=== PATIENT | male | born 1935 | race Caucasian/White ===

== ENCOUNTER 2018-12-01 16:12 | Inpatient (IN) | payer OTHER ==
[2018-12-01] MEDS ORDERED: DILTIAZEM 25 MG/5 ML VIAL IVP ONE ×2 (16:20→16:21)
[2018-12-01] MEDS ORDERED: NS 500 ML IV ONE (16:20)
--- NOTE | 2018-12-01 16:24 | EDPHY ---
H & P Time Seen by Provider: 12/01/18 16:12 HPI/ROS: CHIEF COMPLAINT: Lightheaded HISTORY OF PRESENT ILLNESS: The patient is an 83-year-old man with a history of [place] She reports that this morning after breakfast he took a nap which is unusual for him. After his nap he read a little bit and started to fall asleep again. She suggested that he get up to go to bed and when he tried to stand up he "melted to the floor". She did not lose consciousness. He did not hit his head. He denies headache or pain. He denies shortness of breath. No GI symptoms. No recent fevers or illness. states that he did have leg cramping last night that was a little bit worse than his baseline. No focal weakness or deficits. When paramedics arrived they found him to be in atrial fibrillation. With a blood pressure of 90 systolic. reports no history of atrial fibrillation or history of cardiac disease. Severity: Moderate Modifying factors: None REVIEW OF SYSTEMS: Constitutional: denies: chills, fever, recent illness, recent injury EENTM: denies: blurred vision, double vision, nose congestion Respiratory: denies: cough, shortness of breath Cardiac: See HPI Gastrointestinal/Abdominal: denies: abdominal pain, diarrhea, nausea, vomiting, blood streaked stools Genitourinary: denies: dysuria, frequency, hematuria, pain Musculoskeletal: denies: joint pain, muscle pain Skin: denies: lesions, rash, jaundice, bruising Neurological: denies: headache, numbness, paresthesia, tingling, dizziness, weakness Hematologic/Lymphatic: denies: blood clots, easy bleeding, easy bruising Immunologic/allergic: denies: HIV/AIDS, transplant 10 systems reviewed and negative except as noted EXAM: GENERAL: Well-appearing, pleasant, demented at baseline HEAD: Atraumatic, normocephalic. EYES: Pupils equal round and reactive to light, extraocular movements intact, sclera anicteric, conjunctiva are normal. ENT: TMs normal, nares patent, oropharynx clear without exudates. Moist mucous membranes. NECK: Normal range of motion, supple without lymphadenopathy or JVD. LUNGS: Breath sounds clear to auscultation bilaterally and equal. No wheezes rales or rhonchi. HEART: Irregular and tachycardic ABDOMEN: Soft, nontender, normoactive bowel sounds. No guarding, no rebound. No masses appreciated. BACK: No CVA tenderness, no spinal tenderness, step-offs or deformities EXTREMITIES: Normal range of motion, no pitting or edema. No clubbing or cyanosis. NEUROLOGICAL: Cranial nerves II through XII grossly intact. Normal speech, normal gait. 5/5 strength, normal movement in all extremities, normal sensation , normal reflexes PSYCH: Normal mood, normal affect. SKIN: Warm, dry, normal turgor, no visible rashes or lesions. Source: Patient Exam Limitations: No limitations - Medical/Surgical History Hx Asthma: No Hx Chronic Respiratory Disease: No Hx Diabetes: No Hx Cardiac Disease: Yes Hx Renal Disease: No Hx Cirrhosis: No Hx Alcoholism: No Hx HIV/AIDS: No Hx Splenectomy or Spleen Trauma: No Other PMH: Prostate cancer status post prostatectomy, hypertension, high cholesterol - Family History Significant Family History: No pertinent family hx - Social History Smoking Status: Former smoker Alcohol Use: Sober Drug Use: None Constitutional: Initial Vital Signs Temperature (C) 36.6 C 12/01/18 16:16 Heart Rate 145 H 12/01/18 16:16 Respiratory Rate 18 12/01/18 16:16 Blood Pressure 120/66 12/01/18 16:16 O2 Delivery Mode Nasal Cannula O2 (L/minute) 2 Allergies/Adverse Reactions: No Known Allergies Allergy (Unverified 12/01/18 16:30) Home Medications: Medication Instructions Recorded Aspirin EC [Aspirin EC 81 mg (*)] 81 mg PO DAILY 12/01/18 Donepezil HCl 10 mg PO HS 12/01/18 Lovastatin 20 mg PO HS 12/01/18 Memantine HCl [Namenda 10 mg] 10 mg PO BID 12/01/18 Valsartan [Diovan (*)] 80 mg PO DAILY 12/01/18 Medical Decision Making - Diagnostics EKG Interpretation: An EKG obtained and was read and documented in trace view. Please see trace view for full reading and report. Atrial fibrillation with a ventricular rate of 150. No ischemic changes A repeat EKG obtained and was read and documented in trace view. Please see trace view for full reading and report. Atrial fibrillation rate of 92. No acute ischemic changes Imaging: Discussed imaging studies w/ lead mason tender Radiologist ED Course/Re-evaluation: 4:50 p.m. the patient responded very well to diltiazem. His heart rate is now 90 still in AFib. Will give oral diltiazem. Discussed with pharmacist is recommend 30 mg. Will admit for further evaluation. Will anticoagulate. 4:55 p.m. discussed the case with Dr. Garcia who will admit. She requests diltiazem drip and Lovenox. Differential Diagnosis: Partial list of the Differential diagnosis considered include but were not limited to; atrial fibrillation, acute coronary disease, dementia and although unlikely based on the history and physical exam, I also considered infection, head injury. - Data Points Laboratory Results: Laboratory Results 12/01/18 16:18 Medications Given: Donepezil HCl (Aricept) 10 mg PO HS [facility] Stop: 05/30/19 20:59 Last Admin: 12/01/18 21:41 Dose: 10 mg Diltiazem/Dextrose (Diltiazem 125mg/125ml (Premix)) 125 mls @ 0 mls/hr IV CONT T[facility]; Per Protocol PRN Reason: Protocol Stop: 05/30/19 17:59 Last Admin: 12/02/18 08:02 Dose: 125 mls Thiamine HCl 500 mg/ Sodium (Chloride) 105 mls @ 210 mls/hr IV DAILY [facility] Stop: 12/05/18 08:59 Last Admin: 12/02/18 09:52 Dose: 105 mls Lorazepam (Ativan Injection) 0 mg IVP Q1H PRN; Protocol PRN Reason: Alcohol Withdrawal w/IV access Stop: 05/30/19 17:49 Last Admin: 12/01/18 22:35 Dose: 2 mg Memantine (Namenda) 10 mg PO BID [facility] Stop: 05/30/19 20:59 Last Admin: 12/02/18 09:40 Dose: Not Given Pantoprazole Sodium (Protonix) 40 mg IVP Q6H [facility] Stop: 05/31/19 07:59 Last Admin: 12/02/18 13:45 Dose: 40 mg Pravastatin Sodium (Pravachol) 20 mg PO HS [facility] Stop: 05/30/19 20:59 Last Admin: 12/01/18 21:41 Dose: 20 mg Valsartan (Diovan) 80 mg PO DAILY [facility] Stop: 05/31/19 08:59 Last Admin: 12/02/18 09:41 Dose: Not Given Discontinued Medications Diltiazem HCl (Cardizem 25 Mg/5 Ml Vial) 10 mg IVP EDNOW ONE Stop: 12/01/18 16:21 Last Admin: 12/01/18 16:23 Dose: 10 mg Enoxaparin Sodium (Lovenox) 80 mg SC EDNOW ONE Stop: 12/01/18 17:16 Last Admin: 12/01/18 17:09 Dose: 80 mg Sodium Chloride (Ns) 500 mls @ 0 mls/hr IV EDNOW ONE; Wide Open PRN Reason: Protocol Stop: 12/01/18 16:21 Last Admin: 12/01/18 16:29 Dose: 500 mls Diltiazem/Dextrose (Diltiazem 125mg/125ml (Premix)) 125 mls @ 0 mls/hr IV EDNOW ONE; As Directed PRN Reason: Protocol Stop: 12/01/18 16:57 Last Admin: 12/01/18 17:05 Dose: 125 mls Sodium Chloride (Ns) 1,000 mls @ 0 mls/hr IV ONCE ONE PRN Reason: Wide Open Stop: 12/02/18 00:39 Last Admin: 12/02/18 01:15 Dose: 1,000 mls Pantoprazole Sodium (Protonix) 40 mg IVP BID T[facility] Stop: 05/31/19 02:29 Last Admin: 12/02/18 02:34 Dose: 40 mg Point of Care Test Results: Chemistry 12/01/18 16:21 POC Troponin I 0.19 ng/mL H ng/mL (0.00-0.08) Departure - Departure Disposition: [facility] Clinical Impression: Atrial fibrillation Qualifiers: Atrial fibrillation type: unspecified Qualified Code(s): I48.91 - Unspecified atrial fibrillation Condition: Fair
[2018-12-01 16:34] LABS: PLATELET COUNT 255 10^3/uL (150-400)
[2018-12-01] MEDS ORDERED: DILTIAZEM 30 MG TAB PO ONE (16:51)
[2018-12-01 16:52] LABS: INR 1.07 (0.83-1.16); PROTIME(PATIENT) 13.5 SEC (12.0-15.0)
--- NOTE | 2018-12-01 16:54 | CPEKG ---
Test Reason : OPEN Blood Pressure : / mmHG Vent. Rate : 092 BPM Atrial Rate : 400 BPM P-R Int : 070 ms QRS Dur : 080 ms QT Int : 389 ms P-R-T Axes : 000 065 000 degrees QTc Int : 482 ms Atrial fibrillation Minimal ST depression, diffuse leads Confirmed by Natalie Singh ([id number]) on 12/01/2018 4:54:00 PM Referred By: NATALIE SINGH Confirmed By:Natalie Singh
[2018-12-01] MEDS ORDERED: DILTIAZEM HCL/D5W 125 ML IV ONE (16:56)
--- NOTE | 2018-12-01 16:59 | CPEKG ---
Test Reason : OPEN Blood Pressure : / mmHG Vent. Rate : 150 BPM Atrial Rate : 191 BPM P-R Int : 134 ms QRS Dur : 073 ms QT Int : 312 ms P-R-T Axes : 087 056 237 degrees QTc Int : 493 ms Atrial fibrillation with rapid V-rate Repolarization abnormality, prob rate related Confirmed by Natalie Singh ([id number]) on 12/01/2018 4:59:28 PM Referred By: NATALIE SINGH Confirmed By:Natalie Singh
[2018-12-01] MEDS ORDERED: ENOXAPARIN 80 MG/0.8 ML SYR SC ONE (17:15)
[2018-12-01] MEDS ORDERED: ONDANSETRON DISINTEGRATING 4 MG TAB PO PRN (17:43)
[2018-12-01] MEDS ORDERED: ACETAMINOPHEN 325 MG TAB PO PRN (17:43)
[2018-12-01] MEDS ORDERED: ONDANSETRON 4 MG/2 ML VIAL IVP PRN (17:43)
[2018-12-01] MEDS ORDERED: NS 1,000 ML IV SCH (17:45)
[2018-12-01] MEDS ORDERED: LORazepam 2 MG/ML INJ IVP PRN (17:50)
[2018-12-01] MEDS ORDERED: FLUMAZENIL 0.5 MG/5 ML MDV IVP PRN (17:50)
--- NOTE | 2018-12-01 18:01 | PDGENHP ---
History and Physical - Chief Complaint New onset of A-Fib w/ RVR - History of Present Illness 83 y/o male w/hx of dementia, HTN, and HLD presents via ambulance d/t new onset of a-fib, w/systolic in the 90s. His was at bedside w/him. He is very hard of hearing and only had one of his hearing aids in and he appeared pleasantly confused - , Ene[place], reports his Alzheimer's disease has worsened in the last 6 months. She tells me today after breakfast, he took a nap which is unusual for him. After the nap, he read in bed and started to fall asleep again; she told him he should get out of bed and apparently when he went to stand, he "melted." He did not LOC or hit his head. He denies: CP, palpitations, nausea, vomiting, ROONEY. He had leg cramping last night that was a little worse than his baseline. EKG reveal new onset of a-fib w/RVR. He is being admitted for further work-up, monitoring and treatment. History Information - Allergies/Home Medication List Allergies/Adverse Reactions: No Known Allergies Allergy (Unverified 12/01/18 16:30) Home Medications: Aspirin EC [Aspirin EC 81 mg (*)] 81 mg PO DAILY 12/01/18 [Last Taken 12/01/18] Donepezil HCl 10 mg PO HS 12/01/18 [Last Taken 11/30/18] Lovastatin 20 mg PO HS 12/01/18 [Last Taken 11/30/18] Memantine HCl [Namenda 10 mg] 10 mg PO BID 12/01/18 [Last Taken 12/01/18 0800] Valsartan [Diovan (*)] 80 mg PO DAILY 12/01/18 [Last Taken 12/01/18] I have personally reviewed and updated: family history, medical history, social history, surgical history - Past Medical History cancer (Prostate), hypertension, hyperlipidemia Additional medical history: Dementia - Surgical History Additional surgical history: Cataract sx, prostatectomy - Family History Positive for: hypertension, stroke - Social History Smoking Status: Former smoker Alcohol Use: Heavy (Drinks 4 alcoholic beverages/day and has done so for many years; last drink was last night) Drug Use: None Additional social history: to [place]. Lives in [place]. Review of Systems Review of Systems: ROS: 10pt was reviewed & negative except for what was stated in HPI & below Physical Exam Physical Exam: Lab data and imaging were reviewed. WBC: 12.15 H/H: 11.7/34.1 Plt count: 255 Na: 132 K: 4.6 Cl: 101 Co2: 19 BUN/Cr: 84/1.0 INR: 1.07 Troponin: 0.19 CXR: Cardiomegaly w/o decompensation EKG: Atrial fibrillation Temp Pulse Resp BP Pulse Ox 36.9 C 118 H 15 123/78 H 96 12/01/18 17:52 12/01/18 17:52 12/01/18 17:52 12/01/18 17:52 12/01/18 17:52 O2 (L/minute) 2 Constitutional: no apparent distress, appears nourished, not in pain Eyes: PERRL, anicteric sclera, EOMI Ears, Nose, Mouth, Throat: ears appear normal, no oral mucosal ulcers, dry mucous membranes, hard of hearing Cardiovascular: irregularly irregular, tachycardia Peripheral Pulses: 2+: dorsalis-pedis (R), dorsalis-pedis (L) Respiratory: no respiratory distress, no rales or rhonchi, clear to auscultation Gastrointestinal: normoactive bowel sounds, soft, non-tender abdomen, no palpable masses Genitourinary: no bladder fullness, no bladder tenderness Skin: warm, normal color, no rashes or abrasions, no fluctuance, no induration, No mottled Musculoskeletal: full muscle strength, no muscle tenderness, normal joint ROM, no joint effusions Neurologic: sensation intact bilaterally, CN II-XII Intact Psychiatric: interacting appropriately, not anxious, not encephalopathic, thought process linear, poor memory Lymph, Heme, Immunologic: no cervical LAD, no supraclavicular LAD Lab Data & Imaging Review 12/01/18 Unknown 12/01/18 16:18 WBC 12.15 10^3/uL (3.80-9.50) H 12/01/18 Unknown RBC 3.48 10^6/uL (4.40-6.38) L 12/01/18 Unknown Hgb 11.7 g/dL (13.7-17.5) L 12/01/18 Unknown Hct 34.1 % (40.0-51.0) L 12/01/18 Unknown MCV 98.0 fL (81.5-99.8) 12/01/18 Unknown MCH 33.6 pg (27.9-34.1) 12/01/18 Unknown MCHC 34.3 g/dL (32.4-36.7) 12/01/18 Unknown RDW 12.7 % (11.5-15.2) 12/01/18 Unknown Plt Count 255 10^3/uL (150-400) 12/01/18 Unknown MPV 11.7 fL (8.7-11.7) 12/01/18 Unknown Neut % (Auto) 88.0 % (39.3-74.2) H 12/01/18 Unknown Lymph % (Auto) 4.4 % (15.0-45.0) L 12/01/18 Unknown [place] % (Auto) 6.7 % (4.5-13.0) 12/01/18 Unknown Eos % (Auto) 0.0 % (0.6-7.6) L 12/01/18 Unknown Baso % (Auto) 0.2 % (0.3-1.7) L 12/01/18 Unknown Nucleat RBC Rel Count 0.0 % (0.0-0.2) 12/01/18 Unknown Absolute Neuts (auto) 10.69 10^3/uL (1.70-6.50) H 12/01/18 Unknown Absolute Lymphs (auto) 0.53 10^3/uL (1.00-3.00) L 12/01/18 Unknown Absolute Monos (auto) 0.81 10^3/uL (0.30-0.80) H 12/01/18 Unknown Absolute Eos (auto) 0.00 10^3/uL (0.03-0.40) L 12/01/18 Unknown Absolute Basos (auto) 0.02 10^3/uL (0.02-0.10) 12/01/18 Unknown Absolute Nucleated RBC 0.00 10^3/uL (0-0.01) 12/01/18 Unknown Immature Gran % 0.7 % (0.0-1.1) 12/01/18 Unknown Immature Gran # 0.09 10^3/uL (0.00-0.10) 12/01/18 Unknown RBC/WBC/PLT Morphology TNP 12/01/18 Unknown Platelet Estimate TNP 12/01/18 Unknown PT 13.5 SEC (12.0-15.0) 12/01/18 Unknown INR 1.07 (0.83-1.16) 12/01/18 Unknown APTT 21.1 SEC (23.0-38.0) L 12/01/18 Unknown Sodium 132 mEq/L (135-145) L 12/01/18 16:18 Potassium 4.6 mEq/L (3.5-5.2) 12/01/18 16:18 Chloride 101 mEq/L (97-110) 12/01/18 16:18 Carbon Dioxide 19 mEq/l (22-31) L 12/01/18 16:18 Anion Gap 12 mEq/L (6-14) 12/01/18 16:18 BUN 84 mg/dL (7-23) H 12/01/18 16:18 Creatinine 1.0 mg/dL (0.7-1.3) 12/01/18 16:18 Estimated GFR > 60 12/01/18 16:18 Glucose 109 mg/dL (70-100) H 12/01/18 16:18 Calcium 9.2 mg/dL (8.5-10.4) 12/01/18 16:18 Total Bilirubin 0.8 mg/dL (0.1-1.4) 12/01/18 16:18 Conjugated Bilirubin 0.2 mg/dL (0.0-0.5) 12/01/18 16:18 Unconjugated Bilirubin 0.6 mg/dL (0.0-1.1) 12/01/18 16:18 AST 33 IU/L (17-59) 12/01/18 16:18 ALT 43 IU/L (21-72) 12/01/18 16:18 Alkaline Phosphatase 46 IU/L (38-126) 12/01/18 16:18 POC Troponin I 0.19 ng/mL (0.00-0.08) H 12/01/18 16:21 Total Protein 6.4 g/dL (6.3-8.2) 12/01/18 16:18 Albumin 4.2 g/dL (3.5-5.0) 12/01/18 16:18 Assessment & Plan Plan: 83 y/o male w/hx of HTN, HLD, and dementia presenting w/new onset of a-fib w/ RVR. He was found by paramedics to have systolic in the 90s and in a-fib.His vitals signs upon admission to the ED were the following: BP 120/66, HR 145, Resp 18, Temp 36.6. Current set of vitals are the following: BP 123/78, HR 118, Resp 15, 36.9, 96% 2L NC. #New onset of atrial fibrillation w/RVR: Stable -Etiology unknown but risk factors include HTN, cardiomyopathies, advanced age -Cards consulted and I spoke to Dr. Perez who will evaluate the pt in AM -Cont tele/PCU monitoring -Received Dilt IVP + drip and Lovenox subq 80mg in ED; cont dilt drip overnight and Lovenox subq 80mg BID in AM -Initial troponin mildly elevated (0.19), cycle trop x 2 Q6H -Echo in AM -CXR reveals cardiomegaly w/o decompensation -Checking TSH #Alcohol cessation -Reportedly drinks 4 alcoholic beverages per night and has been doing so for many, many years -Initiated CIWA protocol including seizure precautions, Thiamine bolus + PO daily -Query whether consistent etoh intake is a component to his a-fib/cardiomegaly #Alzheimer's Disease -Cont home aricept and namenda -PT/OT to evaluate and treat #HTN/HLD -Stable in house. Cont home statin and ARB. -Lipid panel performed in 2018 w/cholesterol (134), LDL (53), and non-LDL ( 72) low. -He has been utilizing his statin for years now, unclear what worsened his leg cramping last night #Hyponatremia: (132). Dry mucous membrane, tenting. Received 500 mL in ED; cont IVF x 2 bags overnight. Checking CBC/BMP in AM. Diet: Cardiac VTE ppx: Lovenox subq BID Code: Full Dispo: Admit to obs
[2018-12-01] MEDS: DONEPEZIL HCL 5 MG TAB PO SCH (21:41)
[2018-12-01] MEDS: MEMANTINE HCL 5 MG TAB PO SCH (21:41)
[2018-12-01] MEDS: PRAVASTATIN SODIUM 20 MG TAB PO SCH (21:41)
[2018-12-02] MEDS ORDERED: NS 1,000 ML IV ONE (00:38)
--- NOTE | 2018-12-02 02:25 | HOSPPROG ---
Hospitalist Progress Note Assessment/Plan: XC: Notified by RN of acute melanotic stool and coffee ground emesis. Patient briefly exhibited increased tachycardia but improved once back in bed. The patient feels well and denies abdominal pain. His BP is low/normal, as it has been. Per review of chart this is a new complaint. Will obtain adequate b/l IV access, CBC, and type and cross. NS bolus started and will also order IV PPI. Will likely need EGD in the morning. Objective: Vital Signs Temp Pulse Resp BP Pulse Ox 36.7 C 82 16 88/76 L 95 12/02/18 00:00 12/02/18 00:00 12/02/18 00:00 12/02/18 00:00 12/02/18 00:00 11/30/18 12/01/18 12/02/18 05:59 05:59 05:59 Intake Total 650 Balance 650 PT 13.5 SEC (12.0-15.0) 12/01/18 Unknown INR 1.07 (0.83-1.16) 12/01/18 Unknown ICD10 Worksheet Patient Problems: Problems Problem Status Onset Atrial fibrillation Acute
[2018-12-02] MEDS ORDERED: PANTOPRAZOLE SODIUM 40 MG VIAL IVP SCH (02:30)
[2018-12-02 02:43] LABS: INR 1.39 (0.83-1.16); PROTIME(PATIENT) 16.5 SEC (12.0-15.0)
[2018-12-02] MEDS ORDERED: ENOXAPARIN 80 MG/0.8 ML SYR SC SCH (06:00)
[2018-12-02] MEDS: DILTIAZEM HCL/D5W 125 ML IV SCH ×2 (08:02→20:55)
--- NOTE | 2018-12-02 08:21 | HOSPPROG ---
Hospitalist Progress Note Assessment/Plan: #AGIB: hematemesis/melena this morning. Received 1 dose Lovenox in ER -transfuse additional blood now, hold ASA -DDx: ulcer (occasional Advil), varices (4-5 drinks daily) -Dr. Cintron to scope when more stable #New onset a fib: due to acute bleed. -EF stable 60%, no WMA -Dilt gtt #Hypotension: acute GIB, tachycardia -BP improving with transfusion, dilt. If BP doesn't tolerate, can do amio #Metabolic encephalopathy: due to acute bleed #Etoh dependence: monitor for w/d -check lytes #Alzheimer's: knows self, home and at baseline #HTN: hold Lisinopril #HLD: hold statin #NPO ICU admission, critically ill with acute GIB Critical care time spent 60 min: bedside evaluating pt, reviewing records, d/w Dr. Vaz Subjective: large mel[place] stool Objective: Vital Signs Temp Pulse Resp BP Pulse Ox 36.6 C 167 H 23 H 81/63 L 96 12/02/18 06:10 12/02/18 08:02 12/02/18 07:00 12/02/18 07:00 12/02/18 06:10 Laboratory Results 12/02/18 02:45 12/02/18 02:10 12/01/18 12/02/18 12/03/18 05:59 05:59 05:59 Intake Total 650 Output Total 700 Balance -50 PT 16.5 SEC (12.0-15.0) H 12/02/18 02:05 INR 1.39 (0.83-1.16) H 12/02/18 02:05 - Time Spent With Patient Time Spent with Patient: greater than 35 minutes Time Spent with Patient: Greater than 35 minutes spent on this patients care, greater than 50% of time spent counseling, educating, and coordinating care regarding the above mentioned plan. - Physical Exam Constitutional: other (pale) Eyes: pale conjunctiva Ears, Nose, Mouth, Throat: dry mucous membranes, other (dried blood around lips) Cardiovascular: irregularly irregular, tachycardia Respiratory: no respiratory distress Gastrointestinal: normoactive bowel sounds, guarding, rebound, No distension Genitourinary: No collado in urethra Skin: other (cool, pale) Psychiatric: encephalopathic ICD10 Worksheet Patient Problems: Problems Problem Status Onset Atrial fibrillation Acute
[2018-12-02] MEDS ORDERED: ALTEPLASE 2 MG VIAL IVP PRN (08:35)
[2018-12-02] MEDS ORDERED: ASPIRIN EC 81 MG TAB PO SCH (09:00)
[2018-12-02] MEDS ORDERED: VALSARTAN 80 MG TAB PO SCH (09:00)
--- NOTE | 2018-12-02 09:23 | PDCARCONS ---
Cardiology Consult Reason for Consult: Atrial fibrillation with RVR (new diagnosis) Chief Complaint: Feeling faint with shortness of breath Requesting Physician: Hospitalist Team History of Present Illness: Patient is an 83 y/o male with history of dementia (Alzeheimer's), HTN, and HLP , who presented to [facility] ER after feeling faint at home. Symptoms were initially noted yesterday morning, to the degree that the patient's suggested (with the weakness), that the patient go back to bed. In attempting to stand, the patient slowly fell to the floor, and EMS was called. EMS noted atrial fibrillation on monitor, and rather significant hypotension (systolic pressures of 90 mm Hg). Patient was brought to [facility], and IV CCB was started, and the patient was placed on the floor after diltiazem drip was started and lovenox rendered. Mild elevation to troponin was noted (0.19). On the floor, the patient had hematemasis and melena, and was urgently transferred to the ICU. When the patient was seen this morning, Diltiazem drip was on hold, but ordered. Two units of PRBC had been transfused, and two more were ordered. After the Diltiazem drip was started, heart rates dropped. Blood pressure was hypotensive (90 mm Hg systolic). In speaking with the patients (at bedside), no cardiovascular complaints of chest pains or pressure. No PND or orthopnea. No cardiovascular history ( outside of the HTN and HLP). No diagnosis of CAD, no prior history of atrial fibrillation. Patient is a moderate drinker with 6-8 drinks per day, every day. Remainder of the 12 point review of systems was unremarkable History Information - Allergies/Home Medication List Allergies/Adverse Reactions: No Known Allergies Allergy (Unverified 12/01/18 16:30) Home Medications: Aspirin EC [Aspirin EC 81 mg (*)] 81 mg PO DAILY 12/01/18 [Last Taken 12/01/18] Donepezil HCl 10 mg PO HS 12/01/18 [Last Taken 11/30/18] Lovastatin 20 mg PO HS 12/01/18 [Last Taken 11/30/18] Memantine HCl [Namenda 10 mg] 10 mg PO BID 12/01/18 [Last Taken 12/01/18 0800] Valsartan [Diovan (*)] 80 mg PO DAILY 12/01/18 [Last Taken 12/01/18] I have personally reviewed and updated: family history, medical history, social history, surgical history Past Medical History: - Past Medical History atrial fibrillation, hypertension, hyperlipidemia - Surgical History Reports: no pertinent surgical hx - Family History Positive for: non-pertinent - Social History Smoking Status: Former smoker Alcohol Use: Heavy (Drinks 4 alcoholic beverages/day and has done so for many years; last drink was last night) Drug Use: None Cardiac History - Cardiac History Cardiac Risk Factors: hypertension (>140/90), lipidemia, age > 65, male Timing/Duration: Hours Severity: severe Severity Scale: 10 Location: epigastric Activities at Onset: none Modifying Factors: improves with: lying down, oxygen Associated Symptoms: loss of appetite, malaise, nausea/vomiting, shortness of breath, weakness MANDEEP Risk Evaluation age greater or equal to 65: yes greater or equal to 3 CAD risk factors: yes known CAD(stenosis greater or eqaul to 50%): no ASA use in past 7 days: no severe angina(greater or equal to 2 episodes in 24hrs): no EKG ST changes greater or equal to 0.5mm: no positive cardiac marker: yes Total Score: 3 MANDEEP Score: 13.2% risk Age in Years: 75 or older Sex: Male Congestive Heart Failure History: No Hypertension History: Yes Stroke/TIA/Thromboembolism History: No Vascular Disease History: No Diabetes Mellitus: No [id number] Score: 3 Physical Exam Physical Exam: Temp Pulse Resp BP Pulse Ox 36.6 C 167 H 23 H 81/63 L 96 12/02/18 06:10 12/02/18 08:02 12/02/18 07:00 12/02/18 07:00 12/02/18 06:10 O2 (L/minute) 2 Constitutional: chronically ill appearing, uncomfortable Eyes: PERRL, EOMI Ears, Nose, Mouth, Throat: hearing normal, ears appear normal, dry mucous membranes Cardiovascular: irregularly irregular, pulses symmetric bilaterally, tachycardia , No JVD Peripheral Pulses: 2+: dorsalis-pedis (R), dorsalis-pedis (L) Respiratory: no respiratory distress, no rales or rhonchi, clear to auscultation Gastrointestinal: tenderness Skin: warm, other (palor) Musculoskeletal: no muscle tenderness Neurologic: sensation intact bilaterally, weakness, CN II-XII Intact Psychiatric: encephalopathic Lab and Imaging 12/02/18 02:45 12/02/18 02:05 WBC 16.54 10^3/uL (3.80-9.50) H 12/02/18 02:05 RBC 2.08 10^6/uL (4.40-6.38) L 12/02/18 02:05 Hgb 6.2 g/dL (13.7-17.5) L 12/02/18 02:45 Hct 18.8 % (40.0-51.0) L 12/02/18 02:45 MCV 102.9 fL (81.5-99.8) H 12/02/18 02:05 MCH 34.1 pg (27.9-34.1) 12/02/18 02:05 MCHC 33.2 g/dL (32.4-36.7) 12/02/18 02:05 RDW 12.7 % (11.5-15.2) 12/02/18 02:05 Plt Count 187 10^3/uL (150-400) 12/02/18 02:05 MPV 11.7 fL (8.7-11.7) 12/01/18 Unknown Neut % (Auto) 88.0 % (39.3-74.2) H 12/01/18 Unknown Lymph % (Auto) 4.4 % (15.0-45.0) L 12/01/18 Unknown Jerauld % (Auto) 6.7 % (4.5-13.0) 12/01/18 Unknown Eos % (Auto) 0.0 % (0.6-7.6) L 12/01/18 Unknown Baso % (Auto) 0.2 % (0.3-1.7) L 12/01/18 Unknown Nucleat RBC Rel Count 0.0 % (0.0-0.2) 12/01/18 Unknown Absolute Neuts (auto) 10.69 10^3/uL (1.70-6.50) H 12/01/18 Unknown Absolute Lymphs (auto) 0.53 10^3/uL (1.00-3.00) L 12/01/18 Unknown Absolute Monos (auto) 0.81 10^3/uL (0.30-0.80) H 12/01/18 Unknown Absolute Eos (auto) 0.00 10^3/uL (0.03-0.40) L 12/01/18 Unknown Absolute Basos (auto) 0.02 10^3/uL (0.02-0.10) 12/01/18 Unknown Absolute Nucleated RBC 0.00 10^3/uL (0-0.01) 12/01/18 Unknown Immature Gran % 0.7 % (0.0-1.1) 12/01/18 Unknown Immature Gran # 0.09 10^3/uL (0.00-0.10) 12/01/18 Unknown RBC/WBC/PLT Morphology TNP 12/01/18 Unknown Platelet Estimate TNP 12/01/18 Unknown PT 16.5 SEC (12.0-15.0) H 12/02/18 02:05 INR 1.39 (0.83-1.16) H 12/02/18 02:05 APTT 21.1 SEC (23.0-38.0) L 12/01/18 Unknown Turbidity Cancelled 12/02/18 02:10 Sodium 134 mEq/L (135-145) L 12/02/18 02:05 Potassium 3.6 mEq/L (3.5-5.2) 12/02/18 02:05 Chloride 112 mEq/L (97-110) H 12/02/18 02:05 Carbon Dioxide 13 mEq/l (22-31) L 12/02/18 02:05 Anion Gap 9 mEq/L (6-14) 12/02/18 02:05 BUN 77 mg/dL (7-23) H 12/02/18 02:05 Creatinine 0.8 mg/dL (0.7-1.3) 12/02/18 02:05 Estimated GFR > 60 12/02/18 02:05 Glucose 131 mg/dL (70-100) H 12/02/18 02:05 Calcium 7.1 mg/dL (8.5-10.4) L 12/02/18 02:05 Total Bilirubin 0.8 mg/dL (0.1-1.4) 12/01/18 16:18 Conjugated Bilirubin 0.2 mg/dL (0.0-0.5) 05/08/19 16:18 Unconjugated Bilirubin 0.6 mg/dL (0.0-1.1) 12/01/18 16:18 AST 33 IU/L (17-59) 12/01/18 16:18 ALT 43 IU/L (21-72) 12/01/18 16:18 Alkaline Phosphatase 46 IU/L (38-126) 12/01/18 16:18 POC Troponin I 0.19 ng/mL (0.00-0.08) H 12/01/18 16:21 Troponin I 0.189 ng/mL (0.000-0.034) H 12/02/18 02:10 Total Protein 6.4 g/dL (6.3-8.2) 12/01/18 16:18 Albumin 4.2 g/dL (3.5-5.0) 12/01/18 16:18 TSH 1.640 uIU/mL (0.465-4.680) 12/01/18 16:15 Specimen Hemolysis Cancelled 12/02/18 02:10 Patient ABO/Rh AB NEGATIVE 12/02/18 02:05 Antibody Screen NEGATIVE 12/02/18 02:05 Crossmatch IS Only See Detail 12/02/18 02:05 Visualized and Interpreted Chest x-ray results: Yes Chest X-ray Interpretation: no infiltrate, other (cardiomegaly) Visualized and Interpreted EKG results: Yes EKG additional interpertation: atrial fibrillation with RVR and non specific ST/ T wave changes Telemetry: atrial fibrillation with initial rates of 130-150 bpm; on CCB IV with heart rates of 110 bpm Echocardiogram: Bedside assessment with grossly normal LVEF (tachycardia), and no gross valve pathology was noted. Formal read pending A/P Assessment: Patient is an 83 y/o male with history of Dementia, HTN, and HLP, and new diagnosis of atrial fibrillation with admission to hospital. While in house, acute GI bleed noted with profound drop in H/H noted. Two units of PRBC given with two more in the process of being transfused. No cardiovascular complaints , but patient unable to give much verbal response. gave me all the history , and review of ER and Hospitalist notes for further history. GI has been consulted, and with reduction in heart rate noted, will follow blood pressure response to PRBC transfusions and IV CCB therapy. Mild troponin elevation is likely secondary to the stressors the patient has been subjected to. Cardiology would pursue stabilization of the patient enough to facilitate endoscopy. Plan: (1) Transfusion to H/H >8/30 (2) Would maintain therapy on Diltiazem for assistance with some degree of heart rate slowing (3) Would hold antihypertensive therapies (4) Patient should have endoscopy sooner rather than later (5) Likely stress testing after stabilization/endoscopy to determine if there is CAD noted, but would not pursue this prior given the severity of the current GI bleeding (6) Cardiology will follow this patient while in house.
[2018-12-02] MEDS: PANTOPRAZOLE SODIUM 40 MG VIAL IVP SCH ×3 (09:40→20:55)
[2018-12-02] MEDS: MEMANTINE HCL 5 MG TAB PO SCH ×2 (09:40→22:06)
[2018-12-02] MEDS: THIAMINE HCL 500 MG in NS 100 ML IV SCH (09:52)
[2018-12-02] MEDS ORDERED: EPINEPHrine 1 MG/ML INJ ONE (11:58)
--- NOTE | 2018-12-02 12:14 | PDANEPAE ---
ANE History of Present Illness upper endo ANE Past Medical History - Cardiovascular History Hx Hypertension: Yes Hx Arrhythmias: Yes Hx Chest Pain: No Hx Coronary Artery / Peripheral Vascular Disease: No Hx CHF / Valvular Disease: No Hx Palpitations: No - Pulmonary History Hx COPD: No Hx Asthma/Reactive Airway Disease: No Hx Recent Upper Respiratory Infection: No Hx Oxygen in Use at Home: Yes O2 in Use at Home (L/minute): at times Hx Sleep Apnea: No - Neurologic History Hx Cerebrovascular Accident: No Hx Seizures: No Hx Dementia: Yes - Endocrine History Hx Diabetes: No Hypothyroid: No Hyperthyroid: No Obesity: no - Renal History Hx Renal Disorders: No Renal History Comment: one kidney - Liver History Hx Hepatic Disorders: No - Chronic Pain History Chronic Pain: No ANE Review of Systems Review of Systems: - Exercise capacity Exercise capacity: <4 METS, limited by disability ANE Patient History - Allergies Allergies/Adverse Reactions: No Known Allergies Allergy (Unverified 12/01/18 16:30) - Home Medications Home medications: home medication list seen and reviewed Home Medications: Aspirin EC [Aspirin EC 81 mg (*)] 81 mg PO DAILY 12/01/18 [Last Taken 12/01/18] Donepezil HCl 10 mg PO HS 12/01/18 [Last Taken 11/30/18] Lovastatin 20 mg PO HS 12/01/18 [Last Taken 11/30/18] Memantine HCl [Namenda 10 mg] 10 mg PO BID 12/01/18 [Last Taken 12/01/18 0800] Valsartan [Diovan (*)] 80 mg PO DAILY 12/01/18 [Last Taken 12/01/18] - NPO status NPO Status: no food or drink >8 hours - Anes Hx Anes Hx: no prior problems - Smoking Hx Smoking Status: Former smoker - Alcohol Use Alcohol Use: Heavy (Drinks 4 alcoholic beverages/day and has done so for many years; last drink was last night) ANE Labs/Vital Signs - Labs Result Diagrams: 12/02/18 02:45 12/02/18 02:05 - Vital Signs Blood Pressure: 90/66 Heart Rate: 114 Respiratory Rate: 19 O2 Sat (%): 94 Height: 182.88 cm Weight: 79.379 kg ANE Physical Exam - Airway Mallampati Score: Class 2 Mouth exam: normal dental/mouth exam - Pulmonary Pulmonary: no respiratory distress - Cardiovascular Cardiovascular: regular rate and rhythym - ASA Status ASA Status: III ANE Anesthesia Plan Anesthesia Plan: MAC
[2018-12-02] MEDS ORDERED: LIDOCAINE 2% 2 ML INJ ONE ×3 (12:18)
[2018-12-02] MEDS ORDERED: PROPOFOL 200 MG/20 ML VIAL ONE ×2 (12:18→12:36)
[2018-12-02] MEDS ORDERED: PHENYLEPHRINE HCL 100 MCG/ML SYR ONE ×2 (12:40)
--- NOTE | 2018-12-02 12:44 | GCON ---
[f rep st] CONSULTATION DATE OF CONSULTATION: 12/02/2018 CONSULTING PHYSICIAN: Marin Brooks MD REASON FOR CONSULTATION: Hematemesis. CHIEF COMPLAINT: Hematemesis. HISTORY OF PRESENT ILLNESS: The patient is an 83-year-old male with multiple medical problems including dementia, hypertension, hyperlipidemia, who presented to hospital on 12/01/2018 with new onset of atrial fibrillation with a low blood pressure. He is a poor historian and thus much of information is obtained through the chart and his who is present. Casper had complaints of being faint and light headed. he presented to the ER in rapid afib with a low systolic blood pressure. During his stay in his admission, the patient had 2 episodes of hematemesis as well as rapid AFib. He was placed on a diltiazem drip and given 4 units of packed RBCs. The patient denies any exacerbating or alleviating factor symptoms. He also had multiple episodes of melena and was urgently transferred to the ICU. I am being asked by Dr. Brooks to evaluate the patient in consultation regarding his hematemesis. PAST MEDICAL HISTORY: New onset atrial fibrillation, hypertension, hyperlipidemia, Alzheimer disease. PAST SURGICAL HISTORY: Prostatectomy, cataracts. FAMILY HISTORY: Hypertension, stroke. SOCIAL HISTORY: Former smoker. Positive alcohol. ALLERGIES: NKDA. MEDICATIONS: Aspirin 81 mg a day, donepezil, lovastatin, memantine, valsartan. REVIEW OF SYSTEMS: A 14-point review of systems was asked. Pertinent positives and negatives per HPI. PHYSICAL EXAM: VITAL SIGNS: Blood pressure 90/66, heart rate 114, respiration rate 19, temperature 36.6. GENERAL: In no apparent distress. Nourished. Awake and alert. HEENT: Anicteric. Moist mucosa. CARDIOVASCULAR: Irregular rhythm. Tachycardic. LUNGS: Clear to auscultation bilaterally. No rales, wheezes, rhonchi. ABDOMEN: Soft, nontender, nondistended. Positive bowel sounds. No guarding. No rebound. EXTREMITIES: No clubbing, cyanosis, or edema. SKIN: Non icteric. NEUROLOGIC: 2 through 12 grossly intact. PSYCH: Normal affect. MUSCULOSKELETAL: No obvious joint effusions. LYMPH NODES: No lymphadenopathy. BLOOD WORK: WBC 16.5, hemoglobin 6.2, hematocrit 18.8. INR 1.39. Creatinine 1.0, BUN 77, sodium 134, potassium 3.6. ASSESSMENT AND PLAN: 1. Hematemesis- on aspirin products. At this time, I suspect an aggressive upper gastrointestinal bleed. Has already recieved 4 units PRBC. Would recommend to monitor hemoglobin and hematocrit and transfuse as needed. We would also recommend a Protonix infusion. Would hold all anticoagulation for the time being. At this time, I recommend to proceed with emergent upper endoscopy to delineate the cause of his bleed as well as for therapy. The risks , benefits, and alternatives of the procedure were discussed in great detail with the patient and . The risks of infection, bleeding, perforation, and sedation were discussed. Due to his new onset rapid atrial fibrillation, as well as aggressive bleed as well as in the intensive care unit, he is a high risk for sedation complications and would recommend anesthesiology support. 2. Atrial fibrillation. 3. Hypertension. 4. Hyperlipidemia. Thank you very much for this consultation. /[id number]/MODL MTDD
[2018-12-02] MEDS ORDERED: NALOXONE HCL 0.4 MG/ML INJ IVP PRN (12:55)
--- NOTE | 2018-12-02 12:56 | POSTANESTH ---
Post Anesthetic Evaluation Cardiovascular Status: Similar to Pre-Op Cond Respiratory Status: Similar to Pre-op Cond. Level of Consciousness/Mental Status: Moderately Sleepy Pain Control: Adequate, Prn Tx Ordered Nausea/Vomiting Control: Adequate, Prn Tx Ordered Complications Possibly Related to Anesthesia: None Noted
[2018-12-02] MEDS ORDERED: ALBUMIN 5% 500 ML BOTTLE IV ONE (13:02)
--- NOTE | 2018-12-02 13:08 | ECHO ---
[email or web address] [address] Main: [phone] Echocardiography Examination Transthoracic Name: ZULY HOFFMANN MR#: [id number] Study Date: 12/02/2018 Study Time: 07:52 AM Date of : 1935 Age: 83 year(s) Height: 182.9 cm (72 in.) Weight: 79.38 kg (175 lb.) BSA: 2.01 m2 Gender: Male Examination: Echo Contrast: Image Quality: Rhythm: Atrial fibrillation Heart Rate: 154 bpm BP: 70 mmHg/42 mmHg Indication: New onset of Atrial Fibrillation, New GI Bleed, Hypotension Procedure Staff Referring Physician: Metal Finish Inspector: Yinka Randall RDCS Reading Physician: Xavier Berger MD Requesting Provider: Ordering Physician: Kimmy Madrid Indication: New onset of Atrial Fibrillation, New GI Bleed, Hypotension Measurements Chambers AV/MV Label Value Normal Value Label Value Normal Value LVOT Vmax 0.97 m/s (0.7m/s - 1.1m/s) AV PGmax 12 mmHg LVOTd 2.1 cm (1.9cm - 2.1cm) AV PGmean 7 mmHg LVOT VTI 15.9 cm (18cm - 22cm) AV Vmax 1.72 m/s LVDd, 2D 4.3 cm (4.2cm - 5.9cm) BURTON (Vmax) 2 cm2 LVDs, 2D 3.2 cm (2.1cm - 4cm) BURTON (VTI) 2.2 cm2 IVSd, 2D 0.8 cm (0.6cm - 1.1cm) MV E Vmax 0.8 m/s LVPWd, 2D 1 cm (0.6cm - 1cm) MV E/E' lateral 13 LVEF, 2D 52 % (54% - 74%) MV E/E' septal 13.2 (0.45 - 1.25) LVOT PGmean 2 mmHg MV E' septal 0.06 m/s LVOT Vmean 0.6 m/s MV E' lateral 0.06 m/s RVDd, 2D 2.5 cm (1.9cm - 3.8cm) MV E/E' mean 13.33 LA Volume, BP 76 ml (18ml - 58ml) MV E' mean 0.06 m/s LADs, 2D 3.4 cm (3cm - 4cm) TV/PV LAESV index, BP 37.8 ml/m2 Label Value Normal Value RA Area 18.7 cm2 RA Pressure 5 mmHg Additional Vessels RVSP 37 mmHg Label Value Normal Value TR Pmax 32 mmHg AoRoot, MM 3.6 cm (2.2cm - 3.7cm) TR Vmax 2.84 m/s PV PGmax 4 mmHg Patient: ZULY HOFFMANN Study Date: 12/02/2018 Page 1 of 2 07:52 AM PV Vmax, Caliper 1.02 m/s (0.6m/s - 0.9m/s) Conclusions (1) Left ventricular systolic ejection fraction was grossly normal (50-60%) - normal wall motion (patient was tachycardic in atrial fibrillation over course of this study) - no LVH (2) Normal RV size and function (3) Mild LA dilation was noted (4) Mild MR with mild mitral valve calcification (5) Trileaflet aortic valve with mild AI and moderate sclerosis, but no stenosis (6) Mild TR - RVSP was estimated to be 37 mm Hg (7) Aortic root was measured to 3.6 cm (8) No pericardial effusion Findings Left Ventricle: Left ventricle is normal in size. Low normal left ventricular systolic function. The EF is visually estimated to be 55 %. EF range is estimated at 50 % - 60 %. Left ventricle wall thickness is normal. There are no regional wall motion abnormalities. Unable to assess Diastolic Dysfunction due to atrial fibrillation/a flutter. Right Ventricle: Normal size right ventricle. Right ventricular systolic function is normal. Left Atrium: The left atrium is mildly dilated. Mitral Valve: Mild mitral regurgitation. No mitral valve stenosis. There is mild mitral calcification. Aortic Valve: Mild aortic regurgitation is present. There is no aortic stenosis. Aortic leaflets exhibit moderate calcification. The aortic valve is trileaflet. Tricuspid Valve: Tricuspid valve leaflets are normal in appearance and function. Mild tricuspid regurgitation. Right Ventricular systolic pressure is measured at 37 mmHg. Pulmonary artery pressure is upper limits of normal. Pulmonic Valve: Pulmonic leaflets are structurally normal. Trivial pulmonic valve regurgitation is present. Aorta: The aorta is normal. The aortic root size in M-mode measures 3.6 cm. Aorta Measurements AoRoot, MM is 3.6 cm. Pericardium: No pericardial effusion. Exam Details Procedure Ordered: Echo (No Signature Object) Patient: ZULY HOFFMANN Study Date: 12/02/2018 Page 2 of 2 07:52 AM [id number]
[2018-12-02 13:17] LABS: PLATELET COUNT 140 10^3/uL (150-400)
--- NOTE | 2018-12-02 13:28 | GIREPORT ---
[facility] Surgical Services - Endoscopy Department Patient Name: Casper Lazaro Procedure Date: 12/02/2018 11:56 AM Patient Type: Inpatient Attending MD/ ER Physician: Rohan Cintron MD Procedure: Upper GI endoscopy Indications: Hematemesis Patient Profile: 83 year old male presents for evaluation of hematemesis. Providers: Rohan Cintron MD Medicines: Monitored Anesthesia Care Complications: No immediate complications. Estimated blood loss: None. Description of Procedure: After obtaining informed consent, the endoscope was passed under direct vision. Throughout the procedure, the patient's blood pressure, pulse, and oxygen saturations were monitored continuously. The Endoscope was intro duced through the mouth, and advanced to the second part of duodenum. [facility] GI endoscopy was accomplished without difficulty. The patient tolerated th e procedure well. Findings: The examined esophagus was grossly normal. A large amount of blood was suctioned. No ulcer or mass lesion seen in the distal esophagus. Red blood with large clots was found in the gastric fundus and in the gastric body. This clogged the scope multiple times. Very limited visualization. No ulcer see in the antrum. The examined duodenum was normal except for superficial ulcerations in the duodenal bulb.. Estimated Blood Loss: Estimated blood loss: none. Post Op Diagnosis: - Limited visualization due to a large amount of blood during this examination. - Mucosa aggressively suctioned and flushed. No mass, ulcers or varices noted in the esophagus. Limited visualization of the stomach but no ulc er or mass seen in the antrum. - Superficial ulceration in the duodenal bulb. - Etiology? No source seen despite careful examination. Limited visualization due to large amounts of clots etc. Recommend to monitor H /H and transfuse as needed. Consider repeat EGD in next 24-48 hours. Yasmine nue PPI infusion. Recommendation: - Return patient to ICU for ongoing care. - NPO. - Monitor H/H - Transfuse as needed. - PPI infusion - Consider repeat EGD in 24-48 hours. - Thank you for allowing me to participate in the care of your patient. Attending Participation: I personally performed the entire procedure. Rohan Cintron MD Rohan Cintron MD 12/02/2018 1:28:25 PM This report has been signed electronicallyRohan Cintron MD Number of Addenda: 0 Note Initiated On: 12/02/2018 11:56 AM Total Procedure Duration Time 0 hours 19 minutes 45 seconds [email or web address]
--- NOTE | 2018-12-02 14:30 | GCON ---
[f rep st] CONSULTATION PULMONARY/CRITICAL CARE CONSULTATION DATE OF CONSULTATION: 12/02/2018 REFERRING PHYSICIAN: Bri Dutta MD REASON FOR REFERRAL: Evaluation and management of GI bleed and hypotension. HISTORY: The patient is an 83-year-old male with history of Alzheimer dementia, hypertension, and hy perlipidemia, who presented to [facility] yesterday afternoon af ter feeling faint at home. He was found to be in rapid atrial fibrillation with a systolic blood pre ssure of about 90. IV calcium channel annie was started, and he was given Lovenox. His heart rate came down. While on the floor, patient had hematemesis and melena and was urgently transferred to the ICU. He h as been given a total of 40 units of packed red blood cells in response to a hemoglobin as low as 6.2 . He went to endoscopy and has just returned. Apparently they found a large amount of blood clots i n the stomach, but were unable to see an active bleed. Upon return from the endoscopy, his systolic blood pressure is 62. The patient has sonorous respirations and is not opening his eyes. Eyes are r esponding to questions. PAST MEDICAL HISTORY: 1. Alzheimer dementia. 2. Atrial fibrillation. 3. Hypertension. 4. Hyperlipidemia. MEDICATIONS: At time of admission include aspirin, donepezil, lovastatin, memantine, and valsartan. ALLERGIES: No known drug allergies. SOCIAL HISTORY: Patient is a former smoker. He drinks 4-6 alcoholic beverages daily. FAMILY HISTORY: Unremarkable. REVIEW OF SYSTEMS: Unobtainable. PHYSICAL EXAMINATION: GENERAL: The patient is somnolent and does not open his eyes to questions. V ITAL SIGNS: Blood pressure is 62/48 with his heart rate of 84. His oxygen saturations are 100% on 4 L. HEENT: Normocephalic and atraumatic. No icterus. NECK: No JVD. Trachea is midline. CHEST: Clear to auscultation. CARDIAC: Irregularly irregular rhythm. No edema. ABDOMEN: Soft, nontende r. Bowel sounds are present. EXTREMITIES: No clubbing, cyanosis, or edema. NEURO: The patient is somnolent and moans weakly with noxious stimuli. LABORATORY: A hemoglobin is 6.2. White blood count was 16.5 earlier this morning. Chemistry group from earlier today shows a BUN of 77 with a creatinine of 0.8. Bicarb is 13 with an anion gap of 9. Sodium is 134. A troponin is 0.19. An INR is 1.4. A chest x-ray shows some mild cardiomegaly without pulmonary edema. ASSESSMENT: 1. Upper gastrointestinal bleed: The patient has had melena and dark stools. He has received 4 uni ts of packed red blood cells for a hemoglobin that had fallen over 5 points in the last 24 hours. An endoscopy found blood in the stomach, but without an identified bleeding source. He is now hypotens wilfrido post-procedure. This could be due to ongoing gastrointestinal bleeding with hypovolemia, but thi s could also be exacerbated by propofol the patient received for the procedure. 2. Acute blood-loss anemia: This is due to an upper gastrointestinal bleed. 3. Atrial fibrillation: The patient's heart rate is currently okay off diltiazem. 4. History of dementia. 5. History of alcohol abuse. The patient has a fairly high daily alcohol intake. He is at signific ant risk of alcohol withdrawal. RECOMMENDATIONS: The patient will be given IV fluids acutely. H and H will be checked, and he will be given 2 units of packed red blood cells. I will also order 4 more units to be held. Will discuss with GI if we are unable to control the bleeding, whether repeat endoscopy or perhaps an Interventio nal Radiology consultation would be appropriate. He might benefit from platelets to help reverse the aspirin that he took yesterday. I do not think that reversal of his Lovenox is likely to have signi ficant benefit, given that it has been almost 24 hours since his single dose. 40 minutes critical care time managing hypotension and acute anemia. /[id number]/MODL
[2018-12-02 16:46] LABS: INR 1.25 (0.83-1.16); PROTIME(PATIENT) 15.2 SEC (12.0-15.0)
[2018-12-02] MEDS: PRAVASTATIN SODIUM 20 MG TAB PO SCH (22:07)
[2018-12-02] MEDS: DONEPEZIL HCL 5 MG TAB PO SCH (22:07)
[2018-12-03] MEDS: PANTOPRAZOLE SODIUM 40 MG VIAL IVP SCH ×3 (02:32→13:58)
[2018-12-03 06:21] LABS: PLATELET COUNT 135 10^3/uL (150-400)
[2018-12-03] MEDS: THIAMINE HCL 500 MG in NS 100 ML IV SCH (08:13)
[2018-12-03] MEDS: MEMANTINE HCL 5 MG TAB PO SCH ×2 (08:15→19:46)
--- NOTE | 2018-12-03 09:27 | HOSPPROG ---
Hospitalist Progress Note Assessment/Plan: #AGIB: hematemesis/melena this morning. Received 1 dose Lovenox in ER -EGD showed bleeding, but source not identified. -H/H stable after 6 units RBCs -EGD today showed nonbleeding esophageal ulcer; biopsied for Brown's. BID PPI #New onset a fib: due to acute bleed. -EF stable 60%, no WMA -transition to oral dilt today. No AC with acute GIB. Consider Watchman #Hypotension: acute GIB, tachycardia -resolved with blood #Metabolic encephalopathy: improving, still not at BL per #Etoh dependence: monitor for w/d -check lytes #Alzheimer's: knows self, home and at baseline #HTN: hold Lisinopril #HLD: hold statin #Regular diet Disp: SDU if H/H stable Subjective: less frrequent stools overnight Objective: Vital Signs Temp Pulse Resp BP Pulse Ox 36.3 C 87 19 119/72 97 12/03/18 08:00 12/03/18 08:00 12/03/18 08:00 12/03/18 08:00 12/03/18 08:00 Laboratory Results 12/03/18 05:50 12/03/18 05:50 12/02/18 12/03/18 12/04/18 05:59 05:59 05:59 Intake Total 650 3270 Output Total 700 1975 200 Balance -50 1295 -200 PT 15.2 SEC (12.0-15.0) H 12/02/18 16:15 INR 1.25 (0.83-1.16) H 12/02/18 16:15 - Time Spent With Patient Time Spent with Patient: greater than 35 minutes Time Spent with Patient: Greater than 35 minutes spent on this patients care, greater than 50% of time spent counseling, educating, and coordinating care regarding the above mentioned plan. - Physical Exam Constitutional: other (appears brighter today. More lucid) Eyes: pale conjunctiva Ears, Nose, Mouth, Throat: dry mucous membranes Cardiovascular: irregularly irregular Respiratory: no respiratory distress Gastrointestinal: normoactive bowel sounds, No tenderness Skin: warm Neurologic: CN II-XII Intact Psychiatric: encephalopathic (oriented to hosp, [place] (not president which he would know)) ICD10 Worksheet Patient Problems: Problems Problem Status Onset Atrial fibrillation Acute
--- NOTE | 2018-12-03 11:37 | PDMN ---
Medical Necessity Medical necessity: Change to IP, as of 12/02/18, per MD & MCG M-180; los >2 mn for ongoing management of GI bleed w/acute blood loss anemia, new onset afib, hypotension, tachycardia & metabolic encephalopathy; pt critically ill; requiring further ICU monitoring, blood transfusions, GI consult w/intervention , Cardiology consult & Diltiazem gtt; comorbid advanced age, dementia, etoh dependence
[2018-12-03] MEDS ORDERED: LR 1,000 ML IV ONE (12:00)
[2018-12-03] MEDS ORDERED: PROPOFOL 200 MG/20 ML VIAL ONE (12:46)
[2018-12-03] MEDS ORDERED: LIDOCAINE 2% 100 MG/5 ML SYR ONE (12:46)
--- NOTE | 2018-12-03 12:50 | PDANEPAE ---
ANE History of Present Illness poor view stomach, here for repeat endoscopy for GIB ANE Past Medical History - Cardiovascular History Hx Hypertension: Yes Hx Arrhythmias: Yes Hx Chest Pain: No Hx Coronary Artery / Peripheral Vascular Disease: No Hx CHF / Valvular Disease: No Hx Palpitations: No - Pulmonary History Hx COPD: No Hx Asthma/Reactive Airway Disease: No Hx Recent Upper Respiratory Infection: No Hx Oxygen in Use at Home: Yes O2 in Use at Home (L/minute): at times Hx Sleep Apnea: No Sleep Apnea Screening Result - Last Documented: Positive - Neurologic History Hx Cerebrovascular Accident: No Hx Seizures: No Hx Dementia: Yes - Endocrine History Hx Diabetes: No Hypothyroid: No Hyperthyroid: No Obesity: no - Renal History Hx Renal Disorders: No Renal History Comment: one kidney - Liver History Hx Hepatic Disorders: No - Chronic Pain History Chronic Pain: No ANE Review of Systems Review of Systems: ANE Patient History - Allergies Allergies/Adverse Reactions: No Known Allergies Allergy (Unverified 12/01/18 16:30) - Home Medications Home Medications: Aspirin EC [Aspirin EC 81 mg (*)] 81 mg PO DAILY 12/01/18 [Last Taken 12/01/18] Donepezil HCl 10 mg PO HS 12/01/18 [Last Taken 11/30/18] Lovastatin 20 mg PO HS 12/01/18 [Last Taken 11/30/18] Memantine HCl [Namenda 10 mg] 10 mg PO BID 12/01/18 [Last Taken 12/01/18 0800] Valsartan [Diovan (*)] 80 mg PO DAILY 12/01/18 [Last Taken 12/01/18] - NPO status NPO Since - Liquids (Date): 12/03/18 NPO Since - Liquids (Time): 00:00 NPO Since - Solids (Date): 12/01/18 NPO Since - Solids (Time): 19:00 - Smoking Hx Smoking Status: Former smoker - Alcohol Use Alcohol Use: Sober ANE Labs/Vital Signs - Labs Result Diagrams: 12/03/18 05:50 12/03/18 05:50 - Vital Signs Blood Pressure: 129/88 Heart Rate: 101 Respiratory Rate: 21 O2 Sat (%): 98 Height: 182.88 cm Weight: 79.379 kg ANE Physical Exam - Airway Neck exam: FROM, decreased ROM Mallampati Score: Class 2 Mouth exam: normal dental/mouth exam - Pulmonary Pulmonary: no respiratory distress, no rales or rhonchi - Cardiovascular Cardiovascular: no murmur, rub, or gallop, irregularly irregular - ASA Status ASA Status: III ANE Anesthesia Plan Anesthesia Plan: GA with mask Total IV Anesthesia: Yes
[2018-12-03] MEDS ORDERED: NALOXONE HCL 0.4 MG/ML INJ IVP PRN (13:00)
[2018-12-03] MEDS ORDERED: fentaNYL 100 MCG/2 ML INJ IVP PRN (13:00)
--- NOTE | 2018-12-03 13:10 | POSTANESTH ---
Post Anesthetic Evaluation Cardiovascular Status: Normal, Stable Respiratory Status: Normal, Stable Level of Consciousness/Mental Status: Can Participate in Eval, Mildly Sleepy, Arousable Pain Control: Adequate, Prn Tx Ordered Nausea/Vomiting Control: Adequate, Prn Tx Ordered Complications Possibly Related to Anesthesia: None Noted
--- NOTE | 2018-12-03 13:10 | GIREPORT ---
Formerly [facility] Surgical Services - Endoscopy Department Patient Name: Casper Lazaro Procedure Date: 12/03/2018 12:19 PM Patient Type: Inpatient Attending MD/ ER Physician: Scott Summers MD Procedure: Upper GI endoscopy Indications: Melena, Recent gastrointestinal bleeding, EGD yesterday with obscured visualization of proximal stomach due to blood and clot. Providers: Scott Summers MD Medicines: General Anesthesia Complications: No immediate complications. Description of Procedure: After obtaining informed consent, the endoscope was passed under direct vision. Throughout the procedure, the patient's blood pressure, pulse, and oxygen saturations were monitored continuously. The Endoscope was intro duced through the mouth, and advanced to the second part of duodenum. The [facility] er GI endoscopy was accomplished without difficulty. The patient tolerated th e procedure well. Findings: Esophagogastric landmarks were identified: the gastroesophageal junctio n was found at 40 cm from the incisors. One superficial esophageal ulcer with no bleeding and stigmata of recen t bleeding (pigmented material) was found 40 cm from the incisors. The le brooke was 9 mm in largest dimension. A medium-sized hiatal hernia was present. The entire examined stomach was normal. Biopsies were taken with a cold forceps for histology. Diffuse moderate inflammation characterized by congestion (edema) and erythema was found in the duodenal bulb. The second portion of the duodenum was normal. Estimated Blood Loss: Estimated blood loss: none. Post Op Diagnosis: - Esophagogastric landmarks identified. - Non-bleeding esophageal ulcer for esophageal biopsies to evaluate for Brown's. - Medium-sized hiatal hernia. - Normal stomach. Biopsied. - Duodenitis. - Normal second portion of the duodenum. Recommendation: - Await pathology results. - Use Protonix (pantoprazole) 40 mg PO BID x 2 weeks, then 40 mg PO yaneli ly indefinitely. - Advance diet as tolerated. - Repeat upper endoscopy in 2 months to check healing. - Will sign off, please call with further questions. - Thank you for allowing me to participate in the care of your patient. Attending Participation: I personally performed the entire procedure. Scott Summers MD Scott Summers MD 12/03/2018 1:10:10 PM This report has been signed electronicallyStkeshawn Summers MD Number of Addenda: 0 Note Initiated On: 12/03/2018 12:19 PM [email or web address]
[2018-12-03] MEDS: DILTIAZEM 30 MG TAB PO SCH ×2 (13:58→17:06)
--- NOTE | 2018-12-03 14:13 | PDINTPN ---
[employer] Est[employer]ator Progress Note Assessment/Plan: Assessment: Anemia: Due to UGI bleed from Esophageal ulcer, exacerbated by ASA adn the addition of Lovenox. No longer bleeding. H/H stable AF: Rate OK on IV->PO Cardizem. Anticoagulation contraindicated Plan: Follow H/H. PPI Continue Cardizem OK to transfer to SDU if H/H stable. Avoid anticoagulants/antiplatelet agents for the time being. ? May be a candidate for Watchman for AF prophylaxis. 12/03/18 14:18 Subjective: Feels OK after endoscopy. Denies pain. Objective: Vital Signs Temp Pulse Resp BP Pulse Ox 36.6 C 102 H 20 139/96 H 99 12/03/18 13:52 12/03/18 13:58 12/03/18 13:52 12/03/18 13:58 12/03/18 13:52 Laboratory Results 12/03/18 05:50 12/03/18 05:50 12/02/18 12/03/18 12/04/18 05:59 05:59 05:59 Intake Total 3270 0 Output Total 1975 200 Balance 1295 -200 PT 15.2 SEC (12.0-15.0) H 12/02/18 16:15 INR 1.25 (0.83-1.16) H 12/02/18 16:15 Physical Exam - Physical Exam General Appearance: alert, no apparent distress EENT: normal ENT inspection Neck: normal inspection Respiratory: lungs clear Cardiac/Chest: regular rate, rhythm, No edema Abdomen: normal bowel sounds, non-tender Skin: normal color, warm/dry Extremities: normal inspection Neuro/Psych: alert, normal mood/affect ICD10 Worksheet Patient Problems: Problems Problem Status Onset Atrial fibrillation Acute
--- NOTE | 2018-12-03 14:47 | ASMTCMCOM ---
CM Note CM Note Notes: Reviewed chart, pt admitted for acute GI bleed. He has dementia and lives at home with his . He is normally independent in ADLs. He drinks 4-5 drinks a day, CM to follow up w/ about pt's drinking. PT/OT recommend home care, CM left message for . DC Plan: TBD Date Signed: 12/03/2018 02:46 PM Electronically Signed By:Dee Dee Goodman RN
--- NOTE | 2018-12-03 15:11 | PDCARPN ---
Cardiology Progress Note Chief Complaint: Patient feeling better today. No cardiovascular complaints Assessment/Plan: Assessment: 12-03-18 Patient doing better today. was present in the room with the patient. GI with more successful endoscopy today, and possible source for the massive GI bleeding was noted. Recommendations for patient to be off anticoagulation for the foreseeable future in light of the ulcer noted. Six units of blood were transfused over this hospital stay. Questions about Watchman candidacy given pAF, need for CVA prophylaxis, and inability to use anticoagulation. No chest pains or pressure. No PND or orthopnea. 12-02-18 Patient is an 83 y/o male with history of dementia (Alzeheimer's), HTN, and HLP , who presented to [facility] ER after feeling faint at home. Symptoms were initially noted yesterday morning, to the degree that the patient's suggested (with the weakness), that the patient go back to bed. In attempting to stand, the patient slowly fell to the floor, and EMS was called. EMS noted atrial fibrillation on monitor, and rather significant hypotension (systolic pressures of 90 mm Hg). Patient was brought to [facility], and IV CCB was started, and the patient was placed on the floor after diltiazem drip was started and lovenox rendered. Mild elevation to troponin was noted (0.19). On the floor, the patient had hematemasis and melena, and was urgently transferred to the ICU. When the patient was seen this morning, Diltiazem drip was on hold, but ordered. Two units of PRBC had been transfused, and two more were ordered. After the Diltiazem drip was started, heart rates dropped. Blood pressure was hypotensive (90 mm Hg systolic). In speaking with the patients (at bedside), no cardiovascular complaints of chest pains or pressure. No PND or orthopnea. No cardiovascular history ( outside of the HTN and HLP). No diagnosis of CAD, no prior history of atrial fibrillation. Patient is a moderate drinker with 6-8 drinks per day, every day. Plan: (1) Would refrain from anticoagulation in light of the severity of bleeding and notable findings on endoscopy (2) Statin therapy should continue for HLP (3) Would prefer to maintain diltiazem for assistance with rate/rhythm control (to some extent) (4) Aggressive GI prophylaxis in place (5) Outpatient follow up with cardiology for discussion about non medical options for CVA prophylaxis given this most recent event Subjective: No active cardiovascular complaints Reviewed/Discussed With: family Objective: Vital Signs (8 Hrs) Temp Pulse Resp BP Pulse Ox 12/03/18 14:16 87 23 H 122/85 H 95 12/03/18 13:58 102 H 139/96 H 12/03/18 13:52 36.6 C 97 20 139/96 H 99 12/03/18 13:35 36.4 C 3 L 100 12/03/18 13:31 14 119/91 H 100 12/03/18 13:26 12 126/83 H 100 12/03/18 13:21 16 121/73 H 100 12/03/18 13:16 12 114/83 H 99 12/03/18 13:11 12 105/71 98 12/03/18 13:05 14 88/70 L 96 12/03/18 13:04 36.3 C 12/03/18 12:50 101 H 21 H 129/88 H 98 12/03/18 11:44 36.4 C 101 H 21 H 129/88 H 98 12/03/18 11:24 88 17 122/80 H 95 12/03/18 10:35 36.7 C 87 94 H 109/79 97 12/03/18 09:49 36.5 C 99 18 129/74 H 99 12/03/18 08:00 36.3 C 87 19 119/72 97 Intake/Output (24 Hrs) 12/02/18 12/03/18 12/04/18 05:59 05:59 05:59 Intake Total 3270 0 Output Total 1974 200 Balance 1295 -200 Intake: Oral (ml) 0 IV Intake (ml) 1000 0 IV Infused (ml) 168 Diltiazem HCl/D5w 125 ml 168 @ Per Protocol IV CONT TAYLOR Rx#:[id number] Fresh Frozen Plasma (ml) 402 Packed Red Blood Cells ( 1500 ml) Platelets (ml) 200 Output: Urine (ml) 1974 200 Incontinence 400 Urinal 1575 200 Other: Weight 79.379 kg Number of Stools Incontinence 1 Result Diagrams: 12/03/18 05:50 12/03/18 05:50 Telemetry: normal sinus rhythm - Physical Exam Constitutional: WDWN, no apparent distress Eyes: PERRL, EOMI Ears, Nose, Mouth, Throat: moist mucous membranes Cardiovascular: regular rate and rhythm, no murmurs, no rubs, pulses symmetric bilat, No jugular vein distention Peripheral Pulses: 2+: dorsalis-pedis (R), dorsalis-pedis (L) Respiratory: clear to auscultate bilat, no crackles, no wheezes Gastrointestinal: normoactive bowel sounds Skin: no rashes, no edema Musculoskeletal: no muscular tenderness Neurologic: AAOx3, CN II-XII grossly intact Psychiatric: cooperative, interactive, following commands ICD10 Worksheet Patient Problems: Problems Problem Status Onset Atrial fibrillation Acute
[2018-12-03] MEDS: PANTOPRAZOLE SODIUM 40 MG TAB PO SCH (19:46)
[2018-12-03] MEDS: DONEPEZIL HCL 5 MG TAB PO SCH (19:46)
[2018-12-03] MEDS: PRAVASTATIN SODIUM 20 MG TAB PO SCH (19:46)
[2018-12-04] MEDS: DILTIAZEM 30 MG TAB PO SCH ×5 (00:19→23:43)
[2018-12-04] MEDS ORDERED: POTASSIUM CL 20 MEQ TAB PO ONE (08:41)
[2018-12-04] MEDS: PANTOPRAZOLE SODIUM 40 MG TAB PO SCH ×2 (09:25→20:22)
[2018-12-04] MEDS: MEMANTINE HCL 5 MG TAB PO SCH ×2 (09:25→20:21)
[2018-12-04] MEDS: THIAMINE HCL 500 MG in NS 100 ML IV SCH (09:36)
--- NOTE | 2018-12-04 11:08 | SOAPPROG ---
KUMAR Progress Note Assessment/Plan: Assessment: 83 y/o man with following cardiac and medical issues: --afib on unknown duration --recent severe UGIB s/p PRBCs --Dementia/Alzheimer's --HTN --hyperlipidemia Echo yesterday showed LVEF 55%, mild left atrial enlargement, mild AI/MR/TR and estimated normal PA pressures. He is not a very good historian. History is from at bedside. No bowel movt last 12hrs. Denies CP, palpitations, rest shortness of breath, PND or near syncope. PLAN: 1)no change in current cardiac meds (Diltiazem 30mg PO q6hrs and Pravastatin 20mg daily) 2)no blood thinner such as DOAC agent, coumadin or ASA). 3)once transferred out to [facility] and UGIB bleed more stable will change from short acting Diltiazem to Dilt CD 120mg PO qdaily before discharge home). 4)pt's dementia significant, initial thought is not for referral for Watchman device but will reassess as recovers from UGIB. 12/04/18 11:03 Subjective: denies CP, palpitations, PND or near syncope or rest shortness of breath. Objective: Vital Signs Temp Pulse Resp BP Pulse Ox 36.6 C 85 19 122/79 H 98 12/04/18 08:00 12/04/18 08:00 12/04/18 08:00 12/04/18 08:00 12/04/18 08:00 Laboratory Results 12/04/18 03:45 12/04/18 03:45 12/03/18 12/04/18 12/05/18 05:59 05:59 05:59 Intake Total 3270 1500 300 Output Total 1975 925 Balance 1295 575 300 PT 15.2 SEC (12.0-15.0) H 12/02/18 16:15 INR 1.25 (0.83-1.16) H 12/02/18 16:15 Physical Exam - Physical Exam General Appearance: No alert EENT: normal ENT inspection Neck: full range of motion Respiratory: lungs clear Cardiac/Chest: systolic murmur (1/6 PALMER heard), irregularly irregular, No gallop , No JVD Peripheral Pulses: 2+: carotid (R), carotid (L), femoral (R), femoral (L), dorsalis-pedis (R), dorsalis-pedis (L) Abdomen: non-tender, No guarding Skin: warm/dry Extremities: No pedal edema Neuro/Psych: No oriented x 3 ICD10 Worksheet Patient Problems: Problems Problem Status Onset Atrial fibrillation Acute
--- NOTE | 2018-12-04 12:44 | HOSPPROG ---
Hospitalist Progress Note Assessment/Plan: #AGIB: hematemesis/melena: due to nonbleeding esophageal ulcer -H/H stable. PPI BID #New onset a fib: due to acute bleed. -EF stable 60%, no WMA -transition to Dilt ER at discharge. No AC with acute GIB. Consider Watchman #Hypotension: acute GIB, tachycardia -resolved with blood #Metabolic encephalopathy: improving, still not at BL per #Etoh dependence: monitor for w/d #Hypokalemia: replete #Alzheimer's: knows self, home and at baseline #HTN: hold Lisinopril #HLD: hold statin #Regular diet Disp: transfer to med-surg. Inpt admission for PT, H/H Subjective: no melena overnight Objective: Vital Signs Temp Pulse Resp BP Pulse Ox 36.6 C 86 19 120/86 H 98 12/04/18 08:00 12/04/18 12:38 12/04/18 08:00 12/04/18 12:38 12/04/18 08:00 Laboratory Results 12/04/18 03:45 12/04/18 03:45 12/03/18 12/04/18 12/05/18 05:59 05:59 05:59 Intake Total 3270 1500 300 Output Total 1975 925 Balance 1295 575 300 PT 15.2 SEC (12.0-15.0) H 12/02/18 16:15 INR 1.25 (0.83-1.16) H 12/02/18 16:15 - Time Spent With Patient Time Spent with Patient: greater than 35 minutes Time Spent with Patient: Greater than 35 minutes spent on this patients care, greater than 50% of time spent counseling, educating, and coordinating care regarding the above mentioned plan. - Physical Exam Constitutional: no apparent distress, other (pale) Eyes: PERRL Ears, Nose, Mouth, Throat: moist mucous membranes Cardiovascular: irregularly irregular, No edema Respiratory: no respiratory distress Gastrointestinal: normoactive bowel sounds Genitourinary: no bladder fullness Skin: warm Musculoskeletal: full muscle strength Neurologic: CN II-XII Intact Psychiatric: encephalopathic ICD10 Worksheet Patient Problems: Problems Problem Status Onset Atrial fibrillation Acute
--- NOTE | 2018-12-04 16:39 | ASMTCMCOM ---
CM Note CM Note Notes: Pt was transferred to from the ICU. He was admitted on 12/02 for a GI bleed. He had surgery yesterday for an esophageal ulcer. Pt has extensive cardiac history and Alzheimer's and hypertension. PT and OT both recommend homecare with 24-hour supervision. CM LM for his Eneida [phone] to advise, and to try to get more information on his drinking as recommended, as he has 4 - 5 drinks per day. CM will continue to follow. CM D/C plan: TBD, likely HC with 24-hour supervision Date Signed: 12/04/2018 04:38 PM Electronically Signed By:Josie Medina
[2018-12-04] MEDS: THIAMINE HCL 100 MG TAB PO SCH (18:26)
[2018-12-04] MEDS: PRAVASTATIN SODIUM 20 MG TAB PO SCH (20:21)
[2018-12-04] MEDS: DONEPEZIL HCL 5 MG TAB PO SCH (20:21)
[2018-12-05] MEDS: DILTIAZEM 30 MG TAB PO SCH (04:28)
[2018-12-05 07:53] VITALS: BP 135/98
--- NOTE | 2018-12-05 09:05 | SOAPPROG ---
SOAP Progress Note Assessment/Plan: Assessment: 83 y/o man with following cardiac and medical issues: --afib on unknown duration --recent severe UGIB s/p PRBCs --Dementia/Alzheimer's --HTN --hyperlipidemia Echo this hospitalization showed LVEF 55%, mild left atrial enlargement, mild AI /MR/TR and estimated normal PA pressures. He is not a very good historian. History is from at bedside. No bowel movt last 12hrs. Denies CP, palpitations, rest shortness of breath, PND or near syncope. Transferred out of ICU yesterday. GI bleeding appears to have stopped with one bowel movt only. PLAN: 1)stop short acting Diltiazem 2)start Diltiazem CD 180mg PO qam. 3)no blood thinner (Coumadin, DOAC agent or ASA). 4)will sign off but have arranged for him to see me in out-pt cardiology clinic in 2-2.5 weeks with ecg for cardiac follow up. Thanks. 12/05/18 09:01 Subjective: history from his . She reports he is doing well. Denies CP, near syncope or shortness of breath at rest. One bowel movt last 24hrs. Objective: Vital Signs Temp Pulse Resp BP Pulse Ox 36.4 C 95 18 135/98 H 95 12/05/18 07:52 12/05/18 07:52 12/05/18 07:52 12/05/18 07:52 12/05/18 07:52 Laboratory Results 12/05/18 04:23 12/05/18 04:23 12/04/18 12/05/18 12/06/18 05:59 05:59 05:59 Intake Total 1500 300 Output Total 925 Balance 575 300 PT 15.2 SEC (12.0-15.0) H 12/02/18 16:15 INR 1.25 (0.83-1.16) H 12/02/18 16:15 Physical Exam - Physical Exam General Appearance: No alert EENT: PERRL/EOMI Neck: non-tender Respiratory: lungs clear Cardiac/Chest: systolic murmur (1/6 PALMER heard), irregularly irregular, No edema , No gallop, No JVD Peripheral Pulses: 2+: carotid (R), carotid (L), femoral (R), femoral (L), dorsalis-pedis (R), dorsalis-pedis (L) Abdomen: non-tender, No guarding, No rebound Skin: warm/dry Extremities: No pedal edema Neuro/Psych: No alert ICD10 Worksheet Patient Problems: Problems Problem Status Onset Atrial fibrillation Acute
[2018-12-05] MEDS ORDERED: DILTIAZEM CD 180 MG CAP PO SCH (09:15)
--- NOTE | 2018-12-05 09:19 | PDIAF ---
- Diagnosis Diagnosis: UGIB Code Status: Full Code - Medication Management Discharge Medications: electronically signed and located in the Home Medication List. - Orders Services needed: Home Care, Physical Therapy, Occupational Therapy Home Care Face to Face: I certify that this patient was under my care and that I had the required [id number] encounter meeting the encounter requirements on the discharge day. My findings support the fact that the patient is homebound as defined in Home Care Face to Face Continued: CMS Chapter 7 Medicare Benefits Manual 30.1.1 , The condition of the patient is such that there exists a normal inability to leave home and consequently, leaving home would require a considerable and taxing effort. Diet Recommendation: no restrictions on diet Diet Texture: Regular Texture Diet Additional Instructions: Stop alcohol. No NSAIDs including: Advil, Motrin, Aleve, Naproxen, Ibuprofen Follow up: 1. Dr. Cintron: GI for repeat scope [address] Perez: Cardiology in 2 weeks - Follow Up Care Current Providers and Referrals: Alex Perez MD [Medical Doctor] - follow up in 2 weeks Patient,NotPresent [Unknown] - As per Instructions Xavier Berger MD [Medical Doctor] - (Follow in 1 month. Consider cardioversion ) Rohan Cintron MD [Medical Doctor] - (2 months for repeat endoscopy)
[2018-12-05] MEDS: PANTOPRAZOLE SODIUM 40 MG TAB PO SCH (09:35)
[2018-12-05] MEDS: THIAMINE HCL 100 MG TAB PO SCH (09:35)
[2018-12-05] MEDS: MEMANTINE HCL 5 MG TAB PO SCH (09:36)
--- NOTE | 2018-12-05 09:37 | ASMTLACE ---
LACE Length of stay for Answers: 3 days current admission Acuity / Level of Answers: Yes Care: Did the patient have an inpatient admission? Comorbidities - select Answers: Dementia all that apply Other Notes: HTN; HLD # of Emergency department Answers: 1-2 visits in the last 6 months Social determinants Answers: History of substance abuse (ETOH, street drugs, prescription drugs, etc.) Score: 14 Date Signed: 12/05/2018 09:36 AM Electronically Signed By:Josie Medina
--- NOTE | 2018-12-05 09:54 | ASDISCHSUM ---
Discharge Information Plan Status:Home with Home Health Medically Cleared to Leave: Discharge Date: D/C Disposition: ADT D/C Disposition:Home Health Service Projected Discharge Date:12/05/2018 11:00 AM Transportation at D/C: Discharge Delay Reason: Follow-Up Date:12/05/2018 11:00 AM Discharge Slot: Final Diagnosis: Placement Information Referral Type:*Home Health Care Services Referral ID:[id number] Provider Name:[facility] Address 1:[address] Address 2: City:[place] Selection Factors: State:[place] Patient Contact Information Contact Name:JOSTIN Relationship: Address:[address] Work Phone: City:[place] Alternate Phone: [facility] [address]/[facility] Code:[place] [address] Email: Financial Information Financial Class:Medicare Primary Plan Desc:MEDICARE INPATIENT Primary Plan Number:[id number] Secondary Plan Desc:[facility] Secondary Plan Number:[id number] Assessment Information LACE LACE Length of stay for Answers: 3 days current admission Acuity / Level of Answers: Yes Care: Did the patient have an inpatient admission? Comorbidities - select Answers: Dementia all that apply Other Notes: HTN; HLD # of Emergency department Answers: 1-2 visits in the last 6 months Social determinants Answers: History of substance abuse (ETOH, street drugs, prescription drugs, etc.) Score: 14 Date Signed: 12/05/2018 09:36 AM Electronically Signed By:Josie Medina [facility] CM Progress Note CM Note CM Note Notes: Reviewed chart, pt admitted for acute GI bleed. He has dementia and lives at home with his . He is normally independent in ADLs. He drinks 4-5 drinks a day, CM to follow up w/ about pt's drinking. PT/OT recommend home care, CM left message for . DC Plan: TBD Date Signed: 12/03/2018 02:46 PM Electronically Signed By:Dee Dee Goodman RN [facility] CM Progress Note CM Note CM Note Notes: Pt was transferred to from the ICU. He was admitted on 12/02 for a GI bleed. He had surgery yesterday for an esophageal ulcer. Pt has extensive cardiac history and Alzheimer's and hypertension. PT and OT both recommend homecare with 24-hour supervision. CM LM for his Eneida [phone] to advise, and to try to get more information on his drinking as recommended, as he has 4 - 5 drinks per day. CM will continue to follow. CM D/C plan: TBD, [facility] with 24-hour supervision Date Signed: 12/04/2018 04:38 PM Electronically Signed By:Josie Medina Case Management Discharge Plan Note Case Management Discharge Discharge Order Complete? Answers: Yes Patient to Obtain Answers: via Family Medications Transportation Arranged Answers: Family/Friends Faxed Final Orders Answers: Yes Notes: to [facility] Family Notified Answers: Yes Notes: - she will drive h im home Discharge Comments Notes: Pt being discharged today to home with homeare and 24-hour supervision. is providing the supervision, [facility] to provide homecare PT. CM alerted [facility] via text with Lida Alcocer. Per PT and Dr. Dutta, pt needs a walker at home. CM gave a list of loan closets and also suggested she could try [facility] for a walker. Date Signed: 12/05/2018 09:53 AM Electronically Signed By:Josie Medina Intervention Information Intervention Type:*GONZALES-Signed Date of Service:12/02/2018 02:38 PM Patient Type:Observation Staff Member:Chayo Cisneros Hours: Discipline: Severity: Comment:Patient has dementia. Communicated wit h his , Eneida, regarding the Medicare Observation notice.
--- NOTE | 2018-12-05 09:54 | ASMTDCNOTE ---
Case Management Discharge Discharge Order Complete? Answers: Yes Patient to Obtain Answers: via Family Medications Transportation Arranged Answers: Family/Friends Faxed Final Orders Answers: Yes Notes: to [facility] Family Notified Answers: Yes Notes: - she will drive h im home Discharge Comments Notes: Pt being discharged today to home with homeare and 24-hour supervision. is providing the supervision, [facility] to provide homecare PT. alerted [facility] via text with Lida Alcocer. Per PT and Dr. Dutta, pt needs a walker at home. CM gave a list of loan closets and also suggested she could try [facility] for a walker. Date Signed: 12/05/2018 09:53 AM Electronically Signed By:Josie Medina
--- NOTE | 2018-12-05 14:28 | GDS ---
[f rep st] DISCHARGE SUMMARY DISCHARGE DIAGNOSES: 1. UGIB from esophageal ulcer. 2. Alcohol dependence. 3. Acute blood loss anemia. 4. New onset atrial fibrillation. 5. Hypertension. 6. Metabolic encephalopathy. 7. Dementia. 8. Hypokalemia. 9. Hypertension. 10. Hyperlipidemia. CONSULTATIONS: Cardiology, GI. PROCEDURES: 1. EGD x2: Nonbleeding esophageal ulcer. Esophageal biopsies pending. 2. Medium-sized hiatal hernia. 3. Duodenitis. HISTORY OF PRESENT ILLNESS: An 83-year-old male with alcohol dependence, dementia and hyperlipidemia, presents via ambulance with new onset atrial fibrillation with systolics in the 90s. He was napping day of admission, which is unusual for him, and said when he stood up to stand he "melted." He did not have loss of consciousness. In the ER, EKG showed new onset atrial fibrillation with RVR. He was started on diltiazem drip and was dosed Lovenox 80 mg. HOSPITAL COURSE BY PROBLEM: 1. UGIB: after dosed Lovenox. First EGD was unrevealing with too much blood. Repeat showed nonbleeding esophageal ulcer and duodenitis. Biopsies are pending. PPI b.i.d. for 2 weeks then daily thereafter. Follow up in 2 months for repeat EGD. 2. New onset atrial fibrillation: echo was normal with EF of 60%. No wall motion abnormalities. Diltiazem, no anticoagulation with acute GI bleed. Not a good candidate for Watchman with dementia and alcohol dependence. 3. Hypotension: Secondary to acute GI bleed. This is resolved. 4. Metabolic encephalopathy: from acute bleed. Now at his baseline per . 5. Alzheimer's. Will send home with home PT, OT. 6. Alcohol dependence. Counseled on cessation. He should refrain from alcohol , especially with bleed. 7. Hypokalemia, repleted. 8. Hypertension. Will discontinue lisinopril given normotensive and now starting diltiazem. Follow up with Dr. Perez. 9. Hyperlipidemia, statin. DISPOSITION: Patient is stable for discharge home with . Home care. FOLLOWUP: 1. Dr. Corona in [address] Cintron in 2 months for repeat EGD. MEDICATIONS: 1. Protonix. 2. No NSAIDs. PHYSICAL EXAMINATION: VITAL SIGNS: Today, temperature 36.4, blood pressure is 135/90, heart rate 90, respirations 18, 95% on room air. GENERAL: He is well appearing, no acute distress. HEENT: Pale conjunctiva. CV: Irregularly regular. ABDOMEN: Soft, nontender. : No Mccallum. MUSCULOSKELETAL: Moving all 4 extremities. NEURO: 2 through 12 intact. TIME SPENT: Time spent on discharge greater than 30 minutes coordinating with case management. Discussed case with Dr. Corona. /[id number]/MODL MTDD
== END 2018-12-05 13:32 | disposition home health service (06) | DRG 326 ==
LOC: EDUNIT# → F2W 17:45 → F2N 12-02 06:09 → OBSVTOIN 12-02 15:53 → F3E 12-04 13:25
PROVIDERS: ADMIT Internal Medicine; ATTEND Internal Medicine
PROC: 02HV33Z Insertion of Infusion Device into Superior Vena Cava, Percutaneous Approach (ICD-10-PCS; 2018-12-02)
PROC: 30233L1 Transfusion of Nonautologous Fresh Plasma into Peripheral Vein, Percutaneous Approach (ICD-10-PCS; 2018-12-02)
PROC: 30233N1 Transfusion of Nonautologous Red Blood Cells into Peripheral Vein, Percutaneous Approach (ICD-10-PCS; 2018-12-02)
PROC: 0D958ZZ Drainage of Esophagus, Via Natural or Artificial Opening Endoscopic (ICD-10-PCS; principal; 2018-12-02 12:30)
PROC: 0DB68ZX Excision of Stomach, Via Natural or Artificial Opening Endoscopic, Diagnostic (ICD-10-PCS; 2018-12-03)
PROC: 30233R1 Transfusion of Nonautologous Platelets into Peripheral Vein, Percutaneous Approach (ICD-10-PCS; 2018-12-03)
DX: K22.11 Ulcer of esophagus with bleeding (principal); G93.41 Metabolic encephalopathy; D62 Acute posthemorrhagic anemia; E87.1 Hypo-osmolality and hyponatremia; K29.80 Duodenitis without bleeding; F10.20 Alcohol dependence, uncomplicated; I48.91 Unspecified atrial fibrillation; I10 Essential (primary) hypertension; E87.6 Hypokalemia; E78.5 Hyperlipidemia, unspecified; K44.9 Diaphragmatic hernia without obstruction or gangrene; G30.9 Alzheimer's disease, unspecified; F02.80 Dementia in other diseases classified elsewhere, unspecified severity, without behavioral disturbance, psychotic disturbance, mood disturbance, and anxiety; Z85.46 Personal history of malignant neoplasm of prostate; Z87.891 Personal history of nicotine dependence
CPT/HCPCS: 84484-ER; 96365; 96366; 97116-GP; 97161-GP; 97166-GO; 97535-GO; C1751; G0378; G0515-GO; J0171; J1650; J2001; J2060; J2370; J2704; J3411; P9016; P9017; P9035; P9041